=== PATIENT | female | born 1945 | race Caucasian/White ===

== ENCOUNTER 2020-02-04 20:34 | Inpatient (IN) | payer OTHER ==
[~2020-02-04] VITALS: Ht 162.6 cm; Wt 70.5 kg
[2020-02-04 22:00] VITALS: BP 173/79
[2020-02-04] MEDS ORDERED: MELATONIN10 M3 PO (23:26)
[2020-02-04] MEDS ORDERED: VENLAFAXINE HC225 MG PO (23:27)
[2020-02-04] MEDS ORDERED: ARICEPT10 M1 PO (23:27)
[2020-02-04] MEDS ORDERED: NAMENDA 10 MG T10 MG PO (23:28)
[2020-02-04] MEDS ORDERED: FISH OIL 1,001000 M3 PO (23:29)
[2020-02-04] MEDS ORDERED: GEODON20 MG PO (23:30)
[2020-02-05 08:58] VITALS: BP 152/73
--- NOTE | 2020-02-05 15:45 | EKG ---
[facility] [place] [address] ELECTROCARDIOGRAM REPORT Name: JUVENTINO CHACKO Room #: [facility] ADM IN M.R.#: [id number] Admission: 02/04/20 Attend Phys: Marshall Murrell DO Discharge: Date of : 45 Report #: [id number] THIS REPORT FOR: cc: ADRIA - Amaris family physician/PCP ADRIA - No family physician/PCP Hayden Hughes MD [facility] ~ THIS REPORT FOR: //name// [facility] Test Date: 2020-02-05 Test Time: 15:32:50 Pat Name: JUVENTINO CHACKO Department: Room: [facility] Gender: F Director Oncology: Brian PABON : 1945 Requested By: Marshall Murrell Order Number: [id number] MD: Hayden Hughes Measurements Intervals [place] Rate: 78 P: 51 NH: 197 QRS: -19 QRSD: 103 T: 18 QT: 489 QTc: 558 Interpretive Statements Sinus rhythm Left ventricular hypertrophy Nonspecific T abnormalities, anterior leads Prolonged QT interval No previous ECG available for comparison Electronically Signed On 02-05-2020 15:45:10 CDT by Hayden Hughes [email or web address] <ELECTRONICALLY SIGNED> By: Hayden Hughes MD, [facility] 02/05/20 1545 1532 1532 Hayden Hughes MD, [facility] /EPI
[2020-02-06 09:04] VITALS: BP 169/88
--- NOTE | 2020-02-06 14:32 | EKG ---
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: YULY : 1945 Requested By: Marshall Murrell Order Number: [id number] MD: Damian Chambers Measurements Intervals [place] Rate: 67 P: 60 GA: 194 QRS: -16 QRSD: 100 T: -13 QT: 451 QTc: 476 Interpretive Statements Sinus rhythm Probable left ventricular hypertrophy Nonspecific T abnormalities, anterior leads Compared to ECG 02/05/2020 15:32:50 Prolonged QT interval no longer present T-wave abnormality still present Electronically Signed On 02-06-2020 14:31:54 CDT by Damian Chambers [email or web address] <ELECTRONICALLY SIGNED> By: Damian Chambers MD 02/06/20 1431 1116 1116 Damian Chambers MD /EPI
[2020-02-06 17:13] VITALS: BP 169/84
[2020-02-06 22:00] VITALS: BP 169/84
[2020-02-07 07:53] VITALS: BP 187/86
[2020-02-07 11:53] VITALS: BP 139/70
[2020-02-07 22:00] VITALS: BP 139/70
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
[2020-02-08 06:38] VITALS: BP 145/82
[2020-02-08 08:00] VITALS: BP 145/82
[2020-02-08 11:20] LABS: HEMATOCRIT 41.5 % (37.0-47.0); HEMOGLOBIN 13.8 gm/dL (12.0-15.0); MCHC 33.1 g/dL (28.0-37.0); MCV 93.6 fL (80.0-100.0); RBC 4.44 mil/uL (4.20-5.00); WBC 10.6 thou/uL (4.0-11.0)
[2020-02-08 11:36] LABS: ALBUMIN 3.3 g/dL (3.4-5.0); CALCIUM 9.5 mg/dL (8.5-10.1); TOTAL BILIRUBIN 0.2 mg/dL (0.2-1.0); TOTAL PROTEIN 7.2 g/dL (6.4-8.2)
[2020-02-08 12:23] LABS: TSH 1.853 uIU/mL (0.358-3.740)
[2020-02-08 19:37] VITALS: BP 162/88
[2020-02-09 07:35] VITALS: BP 146/86
[2020-02-09 10:22] VITALS: BP 146/86
[2020-02-10 08:52] LABS: CALCIUM 9.6 mg/dL (8.5-10.1); POTASSIUM 3.9 mmol/L (3.5-5.1)
[2020-02-10 09:05] VITALS: BP 142/73
[2020-02-10 13:11] VITALS: BP 142/73
[2020-02-10 20:45] VITALS: BP 152/86
[2020-02-10 23:04] VITALS: BP 152/86
[2020-02-11 07:50] VITALS: BP 166/88
[2020-02-11 12:26] VITALS: BP 167/77
[2020-02-11 20:00] VITALS: BP 118/80
[2020-02-12 03:23] VITALS: BP 112/68
[2020-02-12 09:54] VITALS: BP 149/81
[2020-02-13 07:39] VITALS: BP 143/58; BP 149/85
[2020-02-13 10:51] VITALS: BP 149/85
[2020-02-13 20:02] VITALS: BP 142/97
[2020-02-13 21:49] VITALS: BP 142/82
[2020-02-14 13:12] VITALS: BP 117/85
[2020-02-14 18:03] VITALS: BP 117/85
[2020-02-14 18:20] VITALS: BP 117/85
[2020-02-14 19:27] VITALS: BP 136/51
[2020-02-15 07:41] VITALS: BP 139/78
[2020-02-15 15:13] VITALS: BP 139/78
[2020-02-15 19:30] VITALS: BP 126/62
[2020-02-16 09:12] VITALS: BP 148/48
[2020-02-16 18:56] VITALS: BP 136/78
[2020-02-17 07:48] VITALS: BP 123/67
[2020-02-17 10:36] VITALS: BP 123/67
[2020-02-17 20:30] VITALS: BP 100/74
[2020-02-17 21:01] VITALS: BP 100/74
[2020-02-18 08:52] VITALS: BP 135/69
[2020-02-18 12:33] VITALS: BP 135/69
[2020-02-18 19:26] VITALS: BP 148/91
[2020-02-18 20:30] VITALS: BP 148/91
[2020-02-19 07:42] VITALS: BP 160/76
[2020-02-19 19:48] VITALS: BP 113/61
[2020-02-20 07:49] VITALS: BP 133/69
[2020-02-20 16:00] VITALS: BP 133/6
[2020-02-20 19:37] VITALS: BP 123/55
[2020-02-21 07:25] VITALS: BP 102/57
[2020-02-21 19:33] VITALS: BP 137/57
[2020-02-21 20:00] VITALS: BP 137/57
[2020-02-22 07:24] VITALS: BP 98/69
[2020-02-22 10:54] VITALS: BP 98/69
[2020-02-22 12:15] LABS: CALCIUM 8.2 mg/dL (8.5-10.1); POTASSIUM 4.4 mmol/L (3.5-5.1)
[2020-02-22 19:38] VITALS: BP 124/70
[2020-02-23 07:40] VITALS: BP 99/60
[2020-02-23 19:35] VITALS: BP 100/66; BP 122/64
[2020-02-24 07:52] VITALS: BP 104/60
[2020-02-24 11:55] LABS: HEMATOCRIT 39.7 % (37.0-47.0); HEMOGLOBIN 13.2 gm/dL (12.0-15.0); MCHC 33.2 g/dL (28.0-37.0); MCV 93.6 fL (80.0-100.0); RBC 4.24 mil/uL (4.20-5.00); RDW 14.3 % (10.5-14.5); WBC 8.9 thou/uL (4.0-11.0)
[2020-02-24 19:41] VITALS: BP 103/64
[2020-02-25 01:48] VITALS: BP 103/64
[2020-02-25 06:18] LABS: ALBUMIN 2.6 g/dL (3.4-5.0); ANION GAP 7 mmol/L (7-16); BUN 20 mg/dL (7-18); CALCIUM 8.9 mg/dL (8.5-10.1); CHLORIDE 109 mmol/L (98-107); CO2 32 mmol/L (21-32); CREATININE 1.1 mg/dL (0.6-1.0); DIRECT BILIRUBIN < 0.1 mg/dL (<0.1-0.2); GLUCOSE 96 mg/dL (74-106); MAGNESIUM 2.4 mg/dL (1.8-2.4); PHOSPHORUS 4.4 mg/dL (2.5-4.9); POTASSIUM 4.2 mmol/L (3.5-5.1); SGOT 25 U/L (15-37); SGPT 19 U/L (30-65); SODIUM 148 mmol/L (136-145); TOTAL BILIRUBIN 0.2 mg/dL (0.2-1.0); TOTAL PROTEIN 6.7 g/dL (6.4-8.2)
[2020-02-25 07:16] VITALS: BP 133/65
[2020-02-25 19:33] VITALS: BP 87/50
[2020-02-26 00:27] VITALS: BP 87/50
[2020-02-26 06:06] LABS: ABSOLUTE NEUTROPHILS 5.9 thou/uL (1.4-8.2); BASOPHILS 0.6 % (0.0-2.0); EOSINOPHILS 2.8 % (0.0-3.0); HEMATOCRIT 37.6 % (37.0-47.0); HEMOGLOBIN 12.6 gm/dL (12.0-15.0); LYMPHOCYTES 14.3 % (24.0-44.0); MCH 31.3 pg (26.0-34.0); MCHC 33.5 g/dL (28.0-37.0); MCV 93.3 fL (80.0-100.0); MONOCYTES 9.8 % (1.0-8.0); PLATELET COUNT 261 thou/uL (150-400); POLYS 72.5 % (36.0-66.0); RBC 4.03 mil/uL (4.20-5.00); RDW 14.1 % (10.5-14.5); WBC 8.2 thou/uL (4.0-11.0)
[2020-02-26 06:56] LABS: CALCIUM 8.3 mg/dL (8.5-10.1); CREATININE 0.9 mg/dL (0.6-1.0); POTASSIUM 4.1 mmol/L (3.5-5.1)
[2020-02-26 07:26] VITALS: BP 129/80
[2020-02-26 19:37] VITALS: BP 98/53
[2020-02-27 07:22] VITALS: BP 98/48
[2020-02-27 10:33] VITALS: BP 98/48
[2020-02-27 10:41] VITALS: BP 98/48
[2020-02-27 20:42] VITALS: BP 107/58
[2020-02-28 07:27] VITALS: BP 112/63
[2020-02-28] MEDS ORDERED: NORVASC5 MG PO (09:18)
[2020-02-28] MEDS ORDERED: DEPAKOTE SPRIN125 MG PO (09:18)
[2020-02-28] MEDS ORDERED: OLANZAPINE ODT5 MG SUBLING (09:19)
[2020-02-28] MEDS ORDERED: ZYPREXA 5 MG TAB5 M1 PO (09:20)
[2020-02-28] MEDS ORDERED: SENNA-TIME S T1 EACH PO (09:20)
[2020-02-28] MEDS ORDERED: PROTONIX 20 MG20 M1 PO (09:21)
[2020-02-28] MEDS ORDERED: HYDROCORTISONE120 M1 TOP (09:22)
[2020-02-28 11:04] VITALS: BP 112/63
== END 2020-02-28 15:00 | DRG 57 ==
LOC: SBH
PROVIDERS: Internal Medicine; ADMIT Psychiatry & Neurology Psychiatry; ATTEND Psychiatry & Neurology Psychiatry
DX: G30.9 Alzheimer's disease, unspecified (principal); F01.51 Vascular dementia, unspecified severity, with behavioral disturbance; F02.81 Dementia in other diseases classified elsewhere, unspecified severity, with behavioral disturbance; E44.0 Moderate protein-calorie malnutrition; E87.0 Hyperosmolality and hypernatremia; Z20.828 Contact with and (suspected) exposure to other viral communicable diseases; G47.00 Insomnia, unspecified; E86.0 Dehydration; I10 Essential (primary) hypertension; F32.9 Major depressive disorder, single episode, unspecified; E87.5 Hyperkalemia; M19.90 Unspecified osteoarthritis, unspecified site; E87.6 Hypokalemia; Z88.0 Allergy status to penicillin; Z88.8 Allergy status to other drugs, medicaments and biological substances; Z88.6 Allergy status to analgesic agent; Z91.040 Latex allergy status; Z68.26 Body mass index [BMI] 26.0-26.9, adult; Z87.891 Personal history of nicotine dependence
CPT/HCPCS: 10880